=== PATIENT | female | born 2005 | race Caucasian/White ===

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

== ENCOUNTER 2025-03-16 19:53 | Emergency (ER) | payer MEDICAID, SELFPAY ==
[2025-03-16 19:54] VITALS: BP 117/84; PULSE 100; RESP 18; TEMP 36.9; O2SAT 99; BMI 41.3
[2025-03-16] MEDS: Ketorolac 60 MG/2 ML Vial IM (21:54)
[2025-03-16] MEDS: Orphenadrine 60 MG/2 ML Ampul IM (21:54)
--- NOTE | 2025-03-16 22:10 | EDS_ITS ---
HPI History of Present Illness Chief Complaint: Back Informant: patient Narrative Narrative: 20-year-old female presenting to the emergency room with the chief complaint of back pain. Patient states she has a history of scoliosis and every now and that her back will hurt. She notes pain in the mid back particularly with movement. She denies any known trauma. However she does states that she was jumping on her trampoline yesterday which is something she does quite frequently but does not recall any particular time where she would have injured the back. She denies any radiation to the legs bowel or bladder dysfunction. No fevers. No red flag history. [facility] Medical History ADHD Depression Bipolar disorder Anxiety Home Medications ?Medication ?Instructions ?Recorded ?Last Taken ?Type ondansetron 4 mg disintegrating 4 mg PO Q8H PRN PRN Na usea #10 tabs 08/17/23 Unknown Rx tablet cyclobenzaprine 10 mg tablet 10 mg PO TID PRN Muscle S pasm #15 03/16/25 Unknown Rx TABLETS ibuprofen 600 mg tablet 600 mg PO Q6H PRN PRN pain # 20 03/16/25 Unknown Rx TABLETS Allergy/AdvReac Type Severity Reaction Status Date / Time Latex, Natural Rubber Allergy Mild Rash Verified 03/16/25 19:56 Social History Smoking Status: Former smoker ROS ROS ED Constitutional Constitutional ED: Denies chills, fever(s) or weight loss Eyes Eyes: Denies change in vision or diplopia ENT ENT ED: Denies ear pain, rhinorrhea or sore throat Cardiovascular Cardiovascular: Denies chest pain, orthopnea, palpitations or racing heartbeat Respiratory/Chest Respiratory/Chest: Denies cough, dyspnea or orthopnea Gastrointestinal Gastrointestinal: Denies abdominal pain, diarrhea, nausea or vomiting Genitourinary Genitourinary ED: Denies dysuria, hematuria or urinary frequency Musculoskeletal Musculoskeletal: Reports back pain; Denies arthralgias, myalgias or neck pain Integumentary Denies abscess or rash Neurologic Neurologic: Denies headache(s), paresthesias or weakness Psychiatric Psychiatric: Denies anxiety, depression, suicidal ideation or suicidal thoughts Endocrine Endocrinology: Denies polydipsia, polyphagia or polyuria Allergic/Immunologic Allergic/Immunologic ED: Denies mouth swelling, tongue swelling or urticaria EXAM Physical Exam Const Vital Signs: 03/16/25 19:54 Temperature 98.4 F Temperature Source Temporal Pulse Rate 100 Respiratory Rate 18 Blood Pressure 117/84 H Blood Pressure Mean 95 Pulse Ox 99 Oxygen Delivery Method Room Air Positive well nourished and well developed General Appearance ED: well developed HEENT Reports normocephalic, head/scalp atraumatic and moist mucous membranes Eyes PERRL and EOMs intact bilaterally Neck no lymphadenopathy, supple and no JVD Resp normal respiratory effort and clear to auscultation bilaterally Cardio regular rate, regular rhythm and no murmurs GI normal to inspection, nondistended, normoactive bowel sounds and non-tender Palpation: soft Back/Spine no CVA tenderness and normal ROM Back/Spine Narrative: There is a slight thoracic scoliotic pattern. She has mild tenderness to palpation in the thoracic paraspinal musculature. Extremity normal to inspection General Extremety ED: Negative for edema General Extremity: Negative for edema Neuro oriented x3 and CN's II-XII intact bilaterally Sensorium / Orientation: alert Motor Exam: strength 5/5 throughout Deep Tendon Reflexes: Rt Patellar (L4): 2+, Lt Patellar (L4): 2+, Rt Ankle (S1): 2+ and Lt Ankle (S1): 2+ Deep Tendon Reflexes Back: Rt Patellar (L4): 2+, Lt Patellar (L4): 2+, Rt Ankle (S1): 2+ and Lt Ankle (S1): 2+ Psych mental status grossly normal Mood & Affect: Negative for depressed or tearful Skin no rashes or lesions noted and no wounds MDM MDM MDM Narrative Medical decision making narrative: Differential diagnosis includes compression fracture scoliosis degenerative disc disease thoracic myofascial strain discitis abscess hematoma Patient is neurologically intact. She seems reasonably comfortable at rest. She was given a dose of Toradol and Norflex. I think there is a high likelihood that this could be muscular in nature. Would recommend conservative treatment anti-inflammatories muscle relaxants heat gentle stretching. Follow-up with primary care if not improving return if worsening History & Record Review Discussion w/independent historian: Patient Discharge Plan Triage Chief Complaint: Back ED Provider: Toni Mosher Dx/Rx/DC Orders Clinical Impression: Acute thoracic myofascial strain, Scoliosis Instructions: ED Back Sprain/Strain Prescriptions: New ibuprofen 600 mg tablet 600 mg PO Q6H PRN PRN (Reason: pain) Qty: 20 0RF cyclobenzaprine 10 mg tablet 10 mg PO TID PRN (Reason: Muscle Spasm) Qty: 15 0RF No Action ondansetron 4 mg tablet,disintegrating 4 mg PO Q8H PRN PRN (Reason: Nausea) Qty: 10 0RF Primary Care Provider: Care Physician,No Primary Referrals: Care Physician,No Primary [Primary Care Provider] - Activity Restrictions/Additional Instructions: Follow-up with primary care as needed. You may benefit from heat and gentle stretching. Print Language: [place] Disposition Disposition: Home, Self Care
[2025-03-16 22:11] VITALS: BP 117/84; PULSE 94; RESP 19; TEMP 36.6; O2SAT 100
== END 2025-03-16 22:11 | disposition home or self-care (01) ==
PROVIDERS: Emergency Provider Emergency Medicine; Visit Provider Emergency Medicine
DX: S29.019A Strain of muscle and tendon of unspecified wall of thorax, initial encounter (principal); M41.84 Other forms of scoliosis, thoracic region; Z87.891 Personal history of nicotine dependence; Y93.39 Activity, other involving climbing, rappelling and jumping off
CPT/HCPCS: 96372; 99282